=== PATIENT | female | born 1950 | race Caucasian/White ===

== ENCOUNTER 2022-10-06 13:51 | Emergency (ER) | payer MEDICARE, SELFPAY ==
[2022-10-06 14:13] VITALS: BP 140/66; PULSE 69; RESP 16; TEMP 36.7; O2SAT 99
--- NOTE | 2022-10-06 15:04 | ED.EAR ---
HPI - Ear Problem General Chief complaint: Ear Stated complaint: left ear pain Time Seen by Provider: 10/06/22 14:37 History of Present Illness HPI Narrative: 72-year-old female reports for evaluation of left ear fullness x2 weeks, worsening over the past 3 to 4 days. Patient reports she developed ear pain in the past 3 to 4 days along with tinnitus and a sensation of fullness. She is traveling from [place], went to urgent care today and was advised to start Debrox drops after an unsuccessful ear irrigation. Patient reports she used 1 episodes of Debrox drops and reported to the ED due to pain. She states she took 2 ibuprofen approximately 1 to 2 hours ago with improvement. Denies fever, body aches or chills, chest pain or shortness of breath, cough or congestion, sore throat, headache, dizziness or lightheadedness. Related Data Allergies Allergy/AdvReac Type Severity Reaction Status Date / Time acetaminophen [From Percocet] Allergy Palpitation Verified 10/06/22 13:52 s oxycodone [From Percocet] Allergy Palpitation Verified 10/06/22 13:52 s Review of Systems Review of Systems: CONSTITUTIONAL: Denies fever, chills EYES: Denies visual changes, redness, or discharge. ENT: See HPI CARDIOVASCULAR: Denies chest pain, palpitations, or edema. RESPIRATORY: Denies cough or dyspnea. GASTROINTESTINAL: Denies abdominal pain, nausea, vomiting, or diarrhea. GENITOURINARY: Denies dysuria or hematuria. SKIN: Denies rash or itching. MUSCULOSKELETAL: Denies back pain, joint pain, or myalgia. NEUROLOGIC: Denies headache, numbness, dizziness, or weakness. PSYCHIATRIC: Denies anxiety or depression. Exam Narrative: GENERAL: Well-appearing, in no acute distress. HEAD: Normocephalic EYES: PERRLA ENT: Nares clear. Mucous membranes moist. Oropharynx without tonsillar hypertrophy exudate or other lesions. Right TM roque and nonbulging, normal canal. Left canal with cerumen impaction. After disimpaction, canal erythematous with red, bulging TM NECK: Supple. CHEST: No respiratory distress. Clear to auscultation, no adventitious breath sounds. HEART: Regular rate and rhythm. No murmur heard. Normal peripheral pulses. EXTREMITIES: Normal range of motion. No edema. SKIN: Warm, dry, no rash. NEURO: No focal deficits. Alert and oriented x3. PSYCH: Normal mood and affect. Course Vital Signs Vital signs: Vital Signs Temperature 98.1 F 10/06/22 14:13 Pulse Rate 69 10/06/22 14:13 Respiratory Rate 16 10/06/22 14:13 Blood Pressure 140/66 10/06/22 14:13 Pulse Oximetry 99 10/06/22 14:13 Temperature 98.1 F 10/06/22 14:13 Pulse Rate 69 10/06/22 14:13 Respiratory Rate 16 10/06/22 14:13 Blood Pressure 140/66 10/06/22 14:13 Pulse Oximetry 99 10/06/22 14:13 Medical Decision Making MDM Narrative Medical decision making narrative: 72-year-old female reports for evaluation of left ear fullness x2 weeks, worsening over the past 3 to 4 days with associated pain. Vital stable, she is afebrile. Exam reveals cerumen impaction. Ear irrigated successfully with disimpaction and improvement in pain. Upon repeat evaluation, TM appeared red and bulging with an erythematous canal. Plan to treat with Augmentin and Floxin drops to cover for otitis media and externa. Advised patient to follow-up with her PCP within the following week for reevaluation. Strict ED return precautions discussed. Patient agrees with the plan and verbalized understanding. Discharged in stable condition. Medical Records Medical records reviewed: Yes I reviewed the external patient's medical records. Vital Signs Vital Signs: Vital Signs Temperature 98.1 F 10/06/22 14:13 Pulse Rate 69 10/06/22 14:13 Respiratory Rate 10/06/22 14:13 Blood Pressure 140/66 10/06/22 14:13 Pulse Oximetry 99 10/06/22 14:13 Temperature 98.1 F 10/06/22 14:13 Pulse Rate 69 10/06/22 14:13 Respiratory Rate 16 10/06/22 14
[2022-10-06] MEDS: HYDROGEN PEROXIDE 3% SOLN(*SP) 473 ML BOTTLE (16:42)
== END 2022-10-06 17:11 | disposition home or self-care (01) ==
PROVIDERS: Emergency Provider Physician Assistant
DX: H66.002 Acute suppurative otitis media without spontaneous rupture of ear drum, left ear (principal); H60.502 Unspecified acute noninfective otitis externa, left ear; H61.22 Impacted cerumen, left ear
CPT/HCPCS: 69209; 99283; A9270